=== PATIENT | female | born 1990 ===

== ENCOUNTER → 2017-04-12 | Outpatient (CLI) | payer SELFPAY ==
--- NOTE | 2017-04-13 11:06 | USB ---
Reason for exam: clinical finding. Physical Findings: Nurse Summary: Patient complains of right breast lump x 2 months occasional sharp pains around menstrual cycle (nurse mj). US Breast BILAT Right breast ultrasound includes all four quadrants, the retroareolar region and axilla. Finding demonstrates a 11 x 5 x 10mm oval, solid, hypoechoic lesion at 12 o'clock at nipple, corresponding to the palpable site. Left breast ultrasound includes all four quadrants, the retroareolar region and axilla. Finding demonstrates no abnormality seen in the left axilla at the site of physician palpated abnormality. These results were verbally communicated with the patient and result sheet given to the patient on 04/12/17. ASSESSMENT: Suspicious, BI-RAD 4 RECOMMENDATION: Surgical consultation and ultrasound core biopsy of the right breast. Called Dr. Perry with mammographic findings and has scheduled an appointment for the patient for 04/16/17 at 11:[address] Poole. PRELIMINARY REPORT CALLED AND FAXED TO DR. POOLE ON 04/13/17 /TP.
== END ==
LOC: RADUSWWP 12:22
PROVIDERS: ATTEND Internal Medicine
DX: N63 Unspecified lump in breast (principal)